=== PATIENT | female | born 1965 | race Caucasian/White ===

== ENCOUNTER → 2019-03-04 | Day surgery (SDC) | payer OTHER ==
[~2019-03-04] MED LIST: BISM525O8 PO; DICL75TA PO; FAMO40TA4 PO; FLUT16SP NS; GABA300C18 PO; IV RINGERS,LACTATED 1000ML 1,000 ML IV SCH; LIDOCAINE 1% PF 2 ML VIAL. ID PRN; LORA10TA3 PO; MIDAZOLAM HCL/PF 2 MG/2 ML VIAL. IV PRN; MORP15TA3 PO; MORP30TA3 PO; MORP60TA PO; OLOP5DRO OP; PREG100C PO; PROP10DR3 EACHEYE; PROPOFOL 20 ML IV ONE; TRIA15CR TP; fentaNYL PF VIAL 100 MCG/2 ML VIAL IV PRN
[2019-03-04 12:51] VITALS: BP 105/61
--- NOTE | 2019-03-04 18:32 | CONS ---
DATE OF CONSULTATION: 03/04/2019 REASON FOR CONSULTATION: Recurrent dysphagia. HISTORY OF PRESENT ILLNESS: A 53-year-old female, whose past medical history is significant for GERD, osteoarthritis plus chronic pain, is seen with recurrent dysphagia. She has recurrent dysphagia in the substernal and cervical location with meats, breads and solids greater than liquids. No change in weight or appetite. Risk factors for reflux, positive for alcohol, nicotine and caffeine. Weight and appetite are stable. She does take the Pepcid 40 mg daily with control of her reflux. Last dilatation was 5 years ago, has worked until recently. She is here today for interval dilatation. Colorectal screening was discussed with the patient and she wishes to defer at this time. PAST MEDICAL HISTORY: GERD, chronic pain. MEDICATIONS: Include bismuth, diclofenac, famotidine, fluticasone, gabapentin, loratadine, morphine sulfate, Tylenol, triamcinolone, Sinemet. ALLERGIES: PENICILLIN, VENOM OF HONEY BEE. FAMILY AND SOCIAL HISTORY: Smoker and drinker. PAST SURGICAL HISTORY: Noncontributory. REVIEW OF SYSTEMS: Per records. PHYSICAL EXAMINATION: GENERAL: Reveals a well-nourished, well-developed female. VITAL SIGNS: Temperature 97.8, pulse 76, respirations 20. HEENT: Normocephalic, atraumatic head. Pupils and extraocular muscles are not tested. Sclerae anicteric. NECK: Supple. LUNGS: Clear. CARDIOVASCULAR: Reveals an S1, S2 without S3, S4 or appreciable murmur. ABDOMEN: Reveals soft abdomen, normal bowel sounds without appreciable hepatosplenomegaly. EXTREMITIES: Reveals no cyanosis, clubbing or edema. IMPRESSION: Dysphagia, recurrent with reflux, Maier's, achalasia, malignancy, eosinophilic esophagitis and Schatzki's ring in the differential. Recommend upper endoscopy, possible biopsy and dilatation. Risks and benefits have been discussed. The patient is willing to proceed at this time. ALAN MARINA MD DR: YAHIR/maia JOB#: [id number] / [id number] JAGDEEP Díaz MD
== END ==
LOC: SURG 10:55
PROVIDERS: ATTEND Internal Medicine Gastroenterology
DX: K29.50 Unspecified chronic gastritis without bleeding (principal); K22.2 Esophageal obstruction; K21.9 Gastro-esophageal reflux disease without esophagitis; F17.210 Nicotine dependence, cigarettes, uncomplicated; Z88.0 Allergy status to penicillin; Z88.8 Allergy status to other drugs, medicaments and biological substances; Z72.89 Other problems related to lifestyle; Z91.030 Bee allergy status
CPT/HCPCS: 43235; 43450; J2704